=== PATIENT | male | born 1990 | race Caucasian/White ===

== ENCOUNTER 2024-11-28 11:04 | Emergency (ER) | payer MEDICAID ==
[~2024-11-28] VITALS: Ht 180.3 cm; Wt 59.0 kg
[2024-11-28] MEDS ORDERED: BUPRENORPHINE HCL/NALOXONE 8 MG-2 MG SL TABLET SL ONE (12:05)
== END 2024-11-28 12:11 | disposition home or self-care (01) ==
LOC: ED 11:04
DX: Z76.0 Encounter for issue of repeat prescription (principal)

== ENCOUNTER 2025-01-22 18:50 | Emergency (ER) | payer OTHER ==
[~2025-01-22] VITALS: Ht 180.3 cm; Wt 59.9 kg
== END 2025-01-22 22:16 | disposition home or self-care (01) ==
LOC: ED 18:50
DX: T59.891A Toxic effect of other specified gases, fumes and vapors, accidental (unintentional), initial encounter (principal); Z02.79 Encounter for issue of other medical certificate; Y92.89 Other specified places as the place of occurrence of the external cause